=== PATIENT | female | born 2000 | race Caucasian/White ===

== ENCOUNTER 2024-05-16 00:35 | Emergency (ER) | payer OTHER ==
[~2024-05-16] VITALS: Ht 160 cm; Wt 74.8 kg
[2024-05-16 00:58] VITALS: BP 127/87; PULSE 68; RESP 18; TEMP 98.3; O2SAT 98
[2024-05-16 01:40] VITALS: BP 127/87; PULSE 68; RESP 18; TEMP 98.3
[2024-05-16 01:42] VITALS: O2SAT 98
[2024-05-16] MEDS ORDERED: FEXO180T82 PO (01:53)
[2024-05-16] MEDS ORDERED: METH4TAB1 PO (01:53)
== END 2024-05-16 01:57 | disposition home or self-care (01) ==
LOC: MED 00:35
DX: L50.9 Urticaria, unspecified (principal); L29.9 Pruritus, unspecified; R22.30 Localized swelling, mass and lump, unspecified upper limb; R22.40 Localized swelling, mass and lump, unspecified lower limb; Z79.899 Other long term (current) drug therapy
CPT/HCPCS: 99283